=== PATIENT | female | born 1955 | race Two or more races ===

== ENCOUNTER 2021-04-07 11:20 | Emergency (ER) | payer OTHER ==
[2021-04-07 11:51] VITALS: TEMP 98; BMI 25.7
[2021-04-07] MEDS ORDERED: amLODIPine BESYLATE 10 MG TABLET (FP) PO ONE (13:27)
[2021-04-07 13:34] LABS: BASO % 0.4 % (0-2.0); EOS % 1.6 % (0-4.5); HEMATOCRIT 42.9 % (32.4-45.2); HEMOGLOBIN 13.7 GM/dL (10.7-15.3); LYMPH % 28.3 % (8-40); MCHC 31.9 g/dl (32.0-36.0); MEAN CELL VOLUME 84.5 fl (80-96); MEAN PLT VOLUME 10.6 fl (7.5-11.1); MONO % 7.6 % (3.8-10.2); NEUT % 62.1 % (42.8-82.8); PLATELET COUNT 214 10^3/uL (134-434); RBC 5.08 M/mm3 (3.60-5.2); RDW 14.9 % (11.6-15.6)
[2021-04-07] MEDS ORDERED: amLODIPine BESYLATE 5 MG TABLET (FP) ONE (13:47)
[2021-04-07 14:04] LABS: CALCIUM 9.3 mg/dL (8.5-10.1)
[2021-04-07 14:05] LABS: BLOOD UREA NITROGEN 18.2 mg/dL (7-18); CO2 28 mmol/L (21-32); GLUCOSE,RANDOM 110 mg/dL (74-106)
[2021-04-07 14:07] LABS: CREATININE 0.9 mg/dL (0.55-1.3)
[2021-04-07 14:17] LABS: ANION GAP 7 MMOL/L (8-16); CHLORIDE 107 mmol/L (98-107); SODIUM 142 mmol/L (136-145)
[2021-04-07] MEDS ORDERED: cloNIDine HCL 0.1 MG TABLET ONE (15:40)
[2021-04-07] MEDS ORDERED: cloNIDine-TTS 0.1 MG/24 HRS PATCH.TDWK TD ONE (16:02)
[2021-04-07] MEDS ORDERED: LOSARTAN POTASSIUM 50 MG TABLET PO ONE (17:42)
[2021-04-07] MEDS ORDERED: LOSARTAN POTASSIUM 50 MG TABLET ONE (18:05)
[2021-04-07 18:16] VITALS: PULSE 70
[2021-04-07 18:43] VITALS: BP 193/89
[2021-04-14] MEDS ORDERED: cloNIDine-TTS 0.1 MG/24 HRS PATCH.TDWK TD SCH (10:00)
== END 2021-04-07 18:55 | disposition home or self-care (01) ==
LOC: JER 11:20
DX: I10 Essential (primary) hypertension (principal)
CPT/HCPCS: 36415; 80048; 84484; 85025; 93005; 93010; 99284-25